=== PATIENT | male | born 1985 | race Native Hawaiian/Other Pacific Islander ===

== ENCOUNTER 2020-09-10 19:07 | Emergency (ER) | payer OTHER ==
[~2020-09-10] VITALS: Ht 170.2 cm; Wt 68.0 kg
[2020-09-10 19:13] VITALS: TEMP 97.6
[2020-09-10 20:49] LABS: PLATELET COUNT 204 K/uL (142-355)
[2020-09-10 21:45] VITALS: BP 138/95
== END 2020-09-10 21:57 | disposition short-term general hospital (02) ==
LOC: ED 19:07
PROVIDERS: Family Medicine
DX: K22.2 Esophageal obstruction (principal); Z11.52 Encounter for screening for COVID-19
CPT/HCPCS: 36415; 80053; 85027; 87635; 99285; J1610; U0003